=== PATIENT | female | born 1995 | race Caucasian/White ===

== ENCOUNTER 2016-02-23 01:12 | Emergency (ER) | payer OTHER ==
[~2016-02-23] VITALS: Ht 165.1 cm; Wt 99.9 kg
[~2016-02-23 01:12] MED LIST: MEDROL DOSEPAK4 MG PO; NOHOMEMEDS; PERCOCET 5/31 TABLET PO; ZANTAC150 MG PO; ZOFRAN ODT4 MG PO
[2016-02-23 01:36] VITALS: BP 138/74
== END 2016-02-23 01:53 | disposition left against medical advice (07) ==
LOC: EME 01:12
DX: R10.9 Unspecified abdominal pain (principal); Z53.21 Procedure and treatment not carried out due to patient leaving prior to being seen by health care provider